=== PATIENT | female | born 1935 | race Caucasian/White ===

== ENCOUNTER 2017-05-29 17:15 | Emergency (ER) | payer MEDICARE | END 2017-05-29 17:44 | disposition left against medical advice (07) | LOC: SED 17:15 | DX: T63.441A Toxic effect of venom of bees, accidental (unintentional), initial encounter (principal); Y93.9 Activity, unspecified; Y92.9 Unspecified place or not applicable; Y99.8 Other external cause status; Z53.29 Procedure and treatment not carried out because of patient's decision for other reasons ==